=== PATIENT | female | born 1970 | race Caucasian/White ===

== ENCOUNTER 2021-04-11 14:18 | Emergency (ER) | payer OTHER, SELFPAY ==
--- NOTE | ~2021-04-11 | XR_ITS ---
EXAMINATION: XR lumbar spine 2-3V EXAM DATE: 04/11/2021 15:21 INDICATION: low back pain traveling down RT leg . TECHNIQUE: Lumber spine frontal, lateral, lateral L5-S1 projections for interpretation. There is no prior study for comparison. FINDINGS: Mild to moderate disc disease at L5-S1, mild at the other lumbar levels. No acute fracture identified. There is mild to moderate lumbar facet arthropathy. The vertebral bodies are aligned in the AP dimension. There are no osteoblastic or osteolytic lesions identified. Sacrum, sacroiliac join ts, sacral arcuate lines are intact. There are cholecystectomy clips. No spondylolysis. IMPRESSION: 1. Mild to moderate lumbar spondylosis. Reviewed, dictated and finalized at location B.
--- NOTE | ~2021-04-11 | XR_ITS ---
EXAMINATION: XR hip RT 2V w AP pelvis INDICATION: Right hip pain TECHNIQUE: AP view the pelvis and three views of the right hip are obtained. COMPARISON: 01/19/2018 FINDINGS: Bone alignment is normal. There is no fracture. There is mild to moderate osteoarthritis of the hips. Phleboliths are noted in the pelvis. The soft tissues are otherwise unremarkable. A chroni c thin linear radiopaque density projects in the soft tissues lateral to the proximal femur. IMPRESSION: 1. Mild to moderate osteoarthritis without acute findings or significant interval change. Reviewed, dictated and finalized at location A. IMPRESSION: 1. Mild to moderate osteoarthritis without acute findings or significant interv al change.
--- NOTE | ~2021-04-11 | CT_ITS ---
EXAMINATION: CT abdomen pelvis w con DATE: 04/11/2021 16:00 INDICATION: Abdominal pain, back and right hip pain. TECHNIQUE: Computed tomography (CT) of the abdomen and pelvis was performed with 100 cc Omnipaque 350 intravenous contrast. Automated exposure control and iterative reconstruction technique were employe d. Exam dose: 1464.34 mGy-cm total exam DLP. COMPARISON: 08/29/2014 CT abdomen pelvis FINDINGS: The lung bases are clear of infiltrate or consolidation. Likely benign 4 mm right lower lob e nodule and likely benign pleural-based 3.5 left lower lobe nodule. Heart size is within normal range. No pericardial or pleural effusion. Status post cholecystectomy. The liver, spleen, pancreas, bile ducts pancreatic duct and adrenal glan ds are unremarkable. Probable 4.5 mm lower pole left renal cyst and probable 5 mm left upper pole 4.5 mm lower pole left r enal cyst. No urinary tract calculus or hydroureteronephrosis. The urinary bladder is unremarkable. Status post hysterectomy. Normal caliber of the abdominal aorta. No intraperitoneal or retroperitoneal or pelvic mass lesion or adenopathy or ascites. Diverticulosis of the colon; no CT evidence of diverticulitis. No bowel obstruction, bowel wall thick ening, pneumatosis or intraperitoneal free air. Small fat-containing umbilical hernia. No suspicious osteolytic or osteoblastic lesions. Diffuse idiopathic skeletal hyperostosis of the low er thoracic spine. Prominent bilateral hip osteoarthritis. IMPRESSION: Status post cholecystectomy Probable small renal cysts Status post hysterectomy Diverticulosis of the colon Diffuse idiopathic skeletal hyperostosis of the thoracic spine Prominent bilateral hip osteoarthritis Reviewed, dictated and finalized at Location A. Reviewed, dictated and finalized at location A.
--- NOTE | 2021-04-11 14:49 | ED.GENADULT ---
HPI - General Adult General Chief complaint: Abdominal Pain Stated complaint: Numbness/pain R leg Source: patient Mode of arrival: ambulatory Limitations: no limitations History of Present Illness HPI narrative: Emily is a 50F with a PMH of GERD, Anxiety, Asthma, and neuropathy that presented to the ED with thigh, back and abdominal pain. First the lateral part of her right thigh started 6 days ago after she played with her grandson. I gradually got worse and moved up to her RLQ and low back. It hurts constantly but is worse with activity. It is accompanied with nausea but no vomiting. She denies fevers, chills, vomiting diarrhea, constipation, chest pain, SOB, and trauma to the area. Related Data Home Medications Medication Instructions Recorded Confirmed calcium citrate-vitamin D3 1 tab-cap PO DAILY 04/11/21 04/11/21 duloxetine 30 mg PO DAILY 04/11/21 04/11/21 gabapentin 600 mg PO DAILY 04/11/21 04/11/21 levothyroxine 112 mcg PO DAILY 04/11/21 04/11/21 jz-us-njkz-FA-Ca carb-vit K 1 tablet PO DAILY 04/11/21 04/11/21 [Women's Multivitamin] omeprazole 20 mg PO DAILY 04/11/21 04/11/21 paroxetine HCl 20 mg PO QAM 04/11/21 04/11/21 Allergies Allergy/AdvReac Type Severity Reaction Status Date / Time alprazolam AdvReac Severe DELIRIUM Verified 01/05/20 09:22 naproxen AdvReac Intermediate SEVERE Verified 01/05/20 09:22 HEADACHE Review of Systems Constitutional: Constitutional: Reports no additional constitutional complaints, Denies chills and Denies fever(s) Eyes: Eyes: Reports no additional eye complaints ENT: Reports system reviewed and no additional complaints, except as documented Cardiovascular: Cardiovascular: Reports no additional cardiovascular complaints Respiratory: Respiratory: Reports no additional respiratory complaints Gastrointestinal: Gastrointestinal: Reports as per HPI Genitourinary: Genitourinary: Reports as per HPI, Denies hematuria and Denies dysuria Musculoskeletal: Musculoskeletal: Reports no additional musculoskeletal complaints Integumentary/Breasts: Skin/Breast: Reports system reviewed and no additional complaints, except as docu Neurologic: Reports system reviewed and no additional complaints, except as documented Psychiatric: Psychiatric: Reports no additional psychiatric complaints Endocrine: Endocrine: Reports no additional endocrine complaints Hematologic/Lymphatic: Hematologic/Lymphatic: Reports no additional hematologic/lymphatic complaints Allergic/Immunologic: Allergic/Immunologic: Reports no additional allergic/immunologic complaints [facility] Social History Social History Alcohol intake: never Exam Const: General: no acute distress and alert Orientation/consciousness: patient oriented x3 Limitations: No altered mental status HENMT: Head: normal to inspection Other: atrauamtic Eyes: Conjunctivae: conjunctivae normal Pupils: Equal, round and reactive pupils present Neck: Neck: normal visual inspection Chest: Chest palpation & inspection: normal inspection of the chest Resp: Effort & Inspection: normal respiratory effort Auscultation: clear to auscultation bilaterally Cardio: Rate: regular rate Rhythm: regular rhythm GI: Inspection: non-distended GI Palp: Yes Soft to palpation, Yes Tenderness to palpation present (GI), No Guarding due to palpation present (GI) and No Rigid due to palpation Other: TTP in the right lower quadrant. +Rosving, obturator and psoas signs. : General: Yes no CVA tenderness Back/Spine/Pelvis: Back: no CVA tenderness Skin: General skin exam: normal color Rashes: no rashes Neuro: General: patient oriented x3 and moves all extremities Extrem: General: normal to inspection Psych: Appearance: grossly normal Mental Status: mental status grossly normal Thought content: Yes Normal thought content present Course Course Emergency Course: Emily was evaluated. She wa
[2021-04-11 14:55] VITALS: BP 107/82; PULSE 93; RESP 16; TEMP 36.6; O2SAT 97
[2021-04-11] MEDS: MORPHINE SULFATE (*CRX) 4 MG/ML INJ IV PUSH (15:02)
[2021-04-11 15:15] LABS: Basophils Absolute Auto 0.03 K/mm3 (0.00-0.10); Basophils Percent Auto 0.4 % (0.0-1.0); Eosinophils Absolute Auto 0.07 K/mm3 (0.02-0.50); Eosinophils Percent Auto 0.8 % (1.0-6.0); Hemoglobin 13.6 g/dL (12.0-15.0); Immature Granulocyte Absolute 0.03 K/mm3 (0.00-0.00); Immature Granulocyte Percent A 0.4 % (0.0-0.0); Lymphocytes Absolute Auto 2.04 K/mm3 (1.10-4.50); Lymphocytes Percent Auto 24.5 % (18.0-42.0); Mean Corpuscular HGB Conc 33.2 g/dL (32.0-36.0); Mean Corpuscular Volume 90.5 fL (78.0-102.0); Mean Platelet Volume 9.7 fl (9.2-11.8); Monocytes Absolute Auto 0.45 K/mm3 (0.10-0.90); Monocytes Percent Auto 5.4 % (2.0-11.0); Neutrophils Absolute Auto 5.7 K/mm3 (1.7-7.2); Neutrophils Percent Auto 68.5 % (50.0-70.0); Platelet Count Result 236 K/mm3 (150-420); Red Blood Count 4.53 M/mm3 (4.20-5.40); Red Cell Distribution Width 12.4 % (11.6-14.4); White Blood Count 8.3 K/mm3 (4.8-10.8)
[2021-04-11 15:27] LABS: INR 0.9; Prothrombin Time 9.9 Seconds (9.50-12.10)
[2021-04-11 15:32] LABS: Alanine Aminotransferase 35 U/L (14-59); Albumin Level 3.6 g/dL (3.4-5.0); Alkaline Phosphatase 71 U/L (46-116); Anion Gap 13 mmol/L (8-16); Aspartate Amino Transferase 24 U/L (15-37); Bilirubin,Total 0.2 mg/dL (0.00-1.00); Blood Urea Nitrogen 15 mg/dL (7-18); Calcium 8.7 mg/dL (8.5-10.1); Carbon Dioxide 24 mmol/L (21-32); Chloride 104 mmol/L (98-108); Estimated CRCL calculation 105 ml/min; Estimated Glomerular Filt Rate > 60; Glucose 127 mg/dL (70-99); Lipase 84 U/L (73-393); Osmolality Calculated 294 mOsm/kg (285-295); Sodium 141 mmol/L (136-145); Total Protein 6.8 g/dL (6.4-8.2)
[2021-04-11 15:34] LABS: CRP < 0.5 mg/dL (0.0-0.9); Lactic Acid Reflex 1.5 mmol/L (0.4-2.0)
[2021-04-11 16:09] LABS: Add Urine Microscopic? NO; Appearance Urine Clear (Clear); Bilirubin Urine Negative (Negative); Blood Urine Negative (Negative); Color Urine Yellow (Yellow); Glucose Urine UA Negative (Negative); Ketones Urine Negative (Negative); Leukocyte Esterase Ur Negative (Negative); Nitrate Urine Negative (Negative); Protein Urine Negative (Negative); Urobilinogen Urine 0.2 mg/dL (0.2-1.0); pH Urine 6.5 (5.0-8.0)
[2021-04-11 16:12] LABS: Pregnancy On Board Control Positive; Urine Pregnancy Test Negative
--- NOTE | 2021-04-11 16:15 | PC.NURSE ---
Pt states he is uncomfortable on stretcher, pt helped to sit in chair.
[2021-04-11 16:35] VITALS: BP 138/87; PULSE 74; RESP 18; O2SAT 98
== END 2021-04-11 16:38 | disposition home or self-care (01) ==
PROVIDERS: Emergency Provider Family Medicine
DX: R10.9 Unspecified abdominal pain (principal); M13.851 Other specified arthritis, right hip
CPT/HCPCS: 36415; 72100; 73502; 74177; 80053; 81003; 81025; 83605; 83690; 85025; 85610; 86140; 96374; 99283; 99284; J2270; Q9967

== ENCOUNTER 2021-11-18 17:22 | Emergency (ER) | payer OTHER, SELFPAY ==
[2021-11-18 17:30] VITALS: BP 126/73; PULSE 81; RESP 18; TEMP 36.6; O2SAT 99
--- NOTE | 2021-11-18 18:30 | ED.SKABFB ---
HPI - Skin/Abscess/Foreign Bdy General Chief complaint: Skin/Abscess/Foreign Body Stated complaint: knot beneath underarm with swelling Time Seen by Provider: 11/18/21 18:04 Source: patient Mode of arrival: ambulatory Limitations: no limitations History of Present Illness HPI narrative: This is a 51-year-old female that presents to the emergency department for an abscess to the right axilla. Noted over the last week. She has been using warm compresses with little relief. Denies fever or drainage from the area. Related Data Home Medications Medication Instructions Recorded Confirmed calcium citrate-vitamin D3 1 tab-cap PO DAILY 04/11/21 04/11/21 duloxetine 30 mg PO DAILY 04/11/21 04/11/21 gabapentin 600 mg PO DAILY 04/11/21 04/11/21 levothyroxine 112 mcg PO DAILY 04/11/21 04/11/21 xt-cs-vesw-FA-Ca carb-vit K 1 tablet PO DAILY 04/11/21 04/11/21 [Women's Multivitamin] omeprazole 20 mg PO DAILY 04/11/21 04/11/21 paroxetine HCl 20 mg PO QAM 04/11/21 04/11/21 Allergies Allergy/AdvReac Type Severity Reaction Status Date / Time alprazolam AdvReac Severe DELIRIUM Verified 01/05/20 09:22 naproxen AdvReac Intermediate SEVERE Verified 01/05/20 09:22 HEADACHE Review of Systems Review of Systems: CONSTITUTIONAL: Denies fever SKIN: Reports abscess All systems reviewed & are unremarkable except as noted in HPI and below PMFSH Past Medical History Medical History (Updated 11/18/21 @ 19:01 by Inna Desai PA-C) History of gastroesophageal reflux (GERD) History of hypothyroidism History of peripheral neuropathy Social History Social History Alcohol intake: never Exam Narrative: GENERAL: Well-appearing, well-nourished, and in no acute distress. HEAD: Normocephalic, atraumatic. EYES: EOMI. EXTREMITIES: Normal range of motion. No edema. Right axilla with 2cm area of erythema with central fluctuance, mild surrounding cellulitis. No lymphangitic streaking. Normal radial pulses SKIN: Warm, dry, no rash. NEURO: No focal deficits. Alert and oriented x3. PSYCH: Normal mood and affect Course Vital Signs Vital signs: Vital Signs Temperature 97.9 F 11/18/21 17:30 Pulse Rate 81 11/18/21 17:30 Respiratory Rate 18 11/18/21 17:30 Blood Pressure 126/73 11/18/21 17:30 Pulse Oximetry 99 11/18/21 17:30 Temperature 97.9 F 11/18/21 17:30 Pulse Rate 81 11/18/21 17:30 Respiratory Rate 18 11/18/21 17:30 Blood Pressure 126/73 11/18/21 17:30 Pulse Oximetry 99 11/18/21 17:30 Procedures Abscess I/D upper extremity: Date of Incision: 11/18/21 Time of Incision: 18:59 Side (if applicable): right Local Anesthetic: lidocaine 1% and with epi Amount of anesthesia used (mL): 3 Technique: incised with #11 blade Packing used?: none I&D Results: Pus and Blood MDM - Skin/Abscess/Foreign Bdy MDM Narrative Medical decision making narrative: Patient presents to the emergency department for an abscess to the right axilla. She is afebrile and nontoxic-appearing. This was successfully drained. Patient will be started on oral antibiotics. She was instructed on care of her wound. She is to follow-up with her primary care doctor. She was given warnings to return to the ER Critical Care Time Critical Care Time Critical Care Time: No Discharge Plan Discharge Clinical Impression: Abscess of skin or subcutaneous tissue Qualifiers: Site of cutaneous abscess: extremity Site of cutaneous abscess of extremity: axilla Laterality: right Qualified Code(s): L02.411 - Cutaneous abscess of right axilla Patient Disposition: Home, Self-Care Condition: Stable Instructions: Antibiotic Form, Abscess (ED) Additional Instructions: Return if symptoms worsen or concerns: any increase in redness, swelling, pain or fever over 101 Take antibiotics as directed. Clean wound with mild soapy water. Apply
== END 2021-11-18 19:36 | disposition home or self-care (01) ==
PROVIDERS: Emergency Provider Emergency Medicine; PCP Physical Medicine & Rehabilitation
DX: L02.411 Cutaneous abscess of right axilla (principal); E03.9 Hypothyroidism, unspecified; G62.9 Polyneuropathy, unspecified; Z79.899 Other long term (current) drug therapy
CPT/HCPCS: 10060; 99283

== ENCOUNTER 2021-12-17 18:01 | Emergency (ER) | payer OTHER, SELFPAY ==
[2021-12-17 18:15] VITALS: BP 132/87; PULSE 83; RESP 16; TEMP 36.3; O2SAT 100
--- NOTE | 2021-12-17 19:23 | PC.NURSE ---
[facility] ERP DR FONSECA, PLEASE PUT XRAY ORDERS IN ON LEFT KNEE, ELBOW, SHOULDER FOR FALL.
--- NOTE | 2021-12-17 19:24 | PC.NURSE ---
Pt walked out at 192
== END 2021-12-17 19:34 | disposition left against medical advice (07) ==
LOC: ANHED 19:31
PROVIDERS: PCP Physical Medicine & Rehabilitation
DX: M25.422 Effusion, left elbow (principal)
CPT/HCPCS: 99199

== ENCOUNTER 2021-12-20 17:05 | Emergency (ER) | payer OTHER, SELFPAY ==
--- NOTE | ~2021-12-20 | XR_ITS ---
XR knee LT 3V 12/20/2021 17:39 Indication: Left knee pain after recent fall Procedure: 3 views left knee Comparison: 06/07/2012 Findings: No acute fracture, subluxation or dislocation. No joint effusion. There is mild osteoarthri tis of the left knee. No foreign bodies. Impression: 1: No acute fracture. Reviewed, dictated and finalized at location A. Impression: 1: No acute fracture.
--- NOTE | ~2021-12-20 | XR_ITS ---
XR elbow LT min 3V 12/20/2021 17:39 INDICATION: Left elbow pain PROCEDURE: 4 views left elbow COMPARISON: No prior studies for comparison. FINDINGS: Fracture, dislocation or subluxation is not identified. The soft tissues appear within norm al limits. No foreign bodies are identified. IMPRESSION: 1: NO ACUTE BONE OR JOINT ABNORMALITY IDENTIFIED. Reviewed, dictated and finalized at location A.
--- NOTE | 2021-12-20 17:12 | ED.FALL ---
HPI - Fall General Chief Complaint: Extremity Injury, Lower Stated Complaint: L knee/L elbow, fell down Time Seen by Provider: 12/20/21 17:19 Source: patient and RN notes reviewed Mode of arrival: ambulatory Limitations: no limitations History of Present Illness complaint: fall Onset (ago): day(s) (5) Fall from: standing Fall witnessed: no Place fall occurred: street Loss of consciousness: none Prolonged down time: no Symptoms prior to fall: none Context: tripped/slipped ( got caught up in the leash of the dog was chasing a cat) Location of injury - extremities: Left: elbow and knee Severity: moderate Quality: dull and aching Related Data Home Medications Medication Instructions Recorded Confirmed calcium citrate-vitamin D3 1 tab-cap PO DAILY 04/11/21 12/20/21 duloxetine 30 mg capsule,delayed 30 mg PO DAILY 04/11/21 12/20/21 release gabapentin 600 mg tablet 600 mg PO DAILY 04/11/21 12/20/21 levothyroxine 112 mcg tablet 112 mcg PO DAILY 04/11/21 12/20/21 ilxorcmc-sui-chep-FA-Ca carb-vit K 1 tablet PO DAILY 04/11/21 12/20/21 18 mg iron-400 mcg-500 mg tablet Allergies Allergy/AdvReac Type Severity Reaction Status Date / Time alprazolam AdvReac Severe DELIRIUM Verified 12/20/21 17:25 naproxen AdvReac Intermediate SEVERE Verified 12/20/21 17:25 HEADACHE Review of Systems Review of Systems: All systems reviewed & are unremarkable except as noted in HPI and below PMFSH Past Medical History Medical History (Updated 12/20/21 @ 18:04 by Edgar Pino MD) History of gastroesophageal reflux (GERD) History of hypothyroidism History of peripheral neuropathy Morbid obesity Social History Social History Alcohol intake: never Exam Const: General: healthy appearing, no acute distress and alert Nutritional Appearance: well nourished and obese morbidly obese Orientation/consciousness: patient oriented x3 Limitations: no limitations HENMT: Head: normal to inspection Ears: external ears normal General nose exam: Normal external nose present Face and sinus: normal facial exam Mouth: Yes moist mucous membranes Eyes: Conjunctivae: conjunctivae normal Pupils: Equal, round and reactive pupils present EOM: EOMs intact bilaterally Neck: Neck: normal visual inspection Resp: Effort & Inspection: normal respiratory effort Auscultation: clear to auscultation bilaterally Cardio: Rate: regular rate Rhythm: regular rhythm GI: GI Palp: Yes Soft to palpation and No Tenderness to palpation present (GI) Auscultation: normal bowel sounds Back/Spine/Pelvis: Cervical Spine: cervical ROM normal Thoracic/Lumbar Spine: thoraco-lumbar ROM normal Skin: General skin exam: normal color Rashes: no rashes Wounds: wounds noted ( abrasion on left elbow and left anterior knee) Neuro: General: patient oriented x3, moves all extremities, no focal motor deficits and CN's II-XI intact bilaterally Speech: normal speech Gait exam (Neuro): Normal gait present ( mild limping gait) Extrem: General: normal exam except as noted Left upper extremity: elbow/forearm tenderness of the olecranon, swelling of the olecranon (mild), normal ROM and abrasion elbow posterior single; no unusual warmth, no crepitus and no deformity Left lower extremity: knee Details: tenderness Location: of the patella Details: inferiorly and of the tibial tuberosity, swelling Location: of the patella, normal ROM, knee ligament exam normal and abrasion knee anterior Details: single Psych: Mental Status: mental status grossly normal Affect: normal affect Attitude: cooperative Course Vital Signs Vital signs: Vital Signs Temperature 37.1 C 12/20/21 17:18 Pulse Rate 101 H 12/20/21 17:18 Respiratory Rate 16 12/20/21 17:18 Blood Pressure 141/87 H 12/20/21 17:18 Pulse Oximetry 96 12/20/21 17:18 Oxygen Delivery Room Air 12/20/21 17:18 Temperature 37.1 C 12/20/21 17:57 Pulse Rate 9
[2021-12-20 17:18] VITALS: BP 141/87; PULSE 101; RESP 16; TEMP 37.1; O2SAT 96
[2021-12-20 17:57] VITALS: BP 126/65; PULSE 92; RESP 16; TEMP 37.1; O2SAT 95
== END 2021-12-20 18:10 | disposition home or self-care (01) ==
PROVIDERS: Emergency Provider Emergency Medicine; PCP Physical Medicine & Rehabilitation
DX: S50.02XA Contusion of left elbow, initial encounter (principal); S80.02XA Contusion of left knee, initial encounter; W19.XXXA Unspecified fall, initial encounter
CPT/HCPCS: 73080; 73562; 99284

== ENCOUNTER 2022-09-22 08:07 | Outpatient (CLI) | payer OTHER, SELFPAY ==
[2022-09-22 08:57] LABS: Alanine Aminotransferase 34 U/L (6-35); Albumin Level 4.4 g/dL (3.5-5.1); Alkaline Phosphatase 81 U/L (38-126); Anion Gap 4 mmol/L (8-16); Aspartate Amino Transferase 25 U/L (14-36); Bilirubin,Total 0.5 mg/dL (0.2-1.3); Blood Urea Nitrogen 10 mg/dL (7-17); Calcium 9.6 mg/dL (8.4-10.2); Carbon Dioxide 28 mmol/L (22-30); Chloride 106 mmol/L (98-107); Cholesterol 206 mg/dL (0-200); Estimated Glomerular Filt Rate > 60; Glucose 128 mg/dL (65-110); HDL Direct 46 mg/dL; Potassium 4.4 mmol/L (3.4-5.0); Sodium 138 mmol/L (137-145); Triglycerides 185 mg/dL (<150)
[2022-09-22 09:08] LABS: LDL Cholesterol Direct 114 mg/dL
== END 2022-09-22 08:08 | disposition home or self-care (01) ==
PROVIDERS: PCP Family Medicine; Visit Provider Family Medicine
DX: E78.5 Hyperlipidemia, unspecified (principal); E03.9 Hypothyroidism, unspecified
CPT/HCPCS: 36415; 80053; 80061; 84443

== ENCOUNTER 2022-12-25 16:40 | Emergency (ER) | payer OTHER, SELFPAY ==
--- NOTE | ~2022-12-25 | US_ITS ---
EXAMINATION: US pelvic complete DATE: 12/25/2022 20:55 INDICATION: Abdominal pain. Right ovarian cyst and assess for torsion. TECHNIQUE: Multiple transabdominal sonographic images of the pelvis were obtained. COMPARISON: None. FINDINGS: The uterus is not visualized and reportedly surgically absent. The right ovary measures 7.1 x 5.5 x 6 .0 cm and contains a 6.4 cm simple appearing anechoic cyst. Vascular flow is seen in the right ovary periphery of the cyst on color Doppler. The left ovary is not visualized. There is no free fluid in t he pelvis. IMPRESSION: 1. Vascular flow evident at the right ovary which contains a 6.4 cm simple appearing cyst. Reviewed, dictated and finalized at location A. IMPRESSION: 1. Vascular flow evident at the right ovary which contains a 6.4 cm simple appe aring cyst.
--- NOTE | ~2022-12-25 | CT_ITS ---
EXAMINATION: CT abdomen pelvis w con DATE: 12/25/2022 19:39 INDICATION: Generalized abdominal pain TECHNIQUE: Computed tomography (CT) of the abdomen and pelvis was performed with 100 mL Omnipaque-350 intravenous contrast. Automated exposure control and iterative reconstruction technique were employe d. The dose-length product was 1555.08 mGy-cm. 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 A couple additional 5-6 mm noncalcified nodules in the right lower lobe and lingula. Mild dependent atelectasis in the bilateral lower lobes. Heart size is normal. No pericardial or pleural effusion. Cholecystectomy clips the gallbladder fossa. Liver, spleen, pancreas, bilateral adrenal gla nds and right kidney are normal. There are a few left renal cysts the largest measuring 8 mm. There a re few scattered colonic diverticula without adjacent inflammatory change to suggest diverticulitis. Small bowel is normal. The appendix is not visualized. No pericecal inflammatory change to suggest ac hughes appendicitis. 7.1 x 5.3 cm right adnexal cyst left adnexa is unremarkable. The uterus is not iden tified and has likely been surgically resected. Bladder is normal. Mild lumbar and lower thoracic spo ndylosis. Small fat-containing umbilical hernia. Moderate bilateral hip osteoarthritis. IMPRESSION: 1. 7.1 x 5.3 cm right adnexal cyst. No other acute intra-abdominal/pelvic process. 2. A couple 5-6 mm noncalcified pulmonary nodules. If the patient is low risk for lung cancer, no fol low-up is needed. If the patient is high risk (i.e., history of smoking or asbestos or significant ra diation exposure), optional follow-up chest CT could be considered at 12 months. 3. Small fat-containing umbilical hernia. Reviewed, dictated and finalized at location A. IMPRESSION: 1. 7.1 x 5.3 cm right adnexal cyst. No other acute intra-abdominal/pelvic proce ss. 2. A couple 5-6 mm noncalcified pulmonary nodules. If the patient is low risk f or lung cancer, no follow-up is needed. If the patient is high risk (i.e., hist ory of smoking or asbestos or significant radiation exposure), optional follow- up chest CT could be considered at 12 months. 3. Small fat-containing umbilical hernia.
[2022-12-25 16:48] VITALS: BP 146/73; PULSE 90; RESP 16; TEMP 36.8; O2SAT 97
[2022-12-25 17:50] LABS: Appearance Urine Clear (Clear); Bilirubin Urine Negative (Negative); Blood Urine Negative (Negative); Color Urine Yellow (Yellow); Glucose Urine UA Negative (Negative); Ketones Urine Negative (Negative); Leukocyte Esterase Ur Negative LEU/UL (Negative); Nitrate Urine Negative (Negative); Protein Urine Negative (Negative); Urobilinogen Urine 0.2 mg/dL (<2.0)
[2022-12-25 18:03] LABS: Add Urine Microscopic? NO
[2022-12-25] MEDS: MORPHINE SULFATE (*CRX) 4 MG/ML INJ IV PUSH (18:36)
[2022-12-25] MEDS: SODIUM CHLORIDE 0.9% IV 1,000 ML 999 ML IV CONT (18:36)
[2022-12-25] MEDS: ONDANSETRON INJ 4 MG/2 ML VIAL IV PUSH (18:36)
[2022-12-25 19:08] LABS: Basophils Absolute Auto 0.1 K/mm3 (0.0-0.1); Basophils Percent Auto 0.7 % (0.2-1.2); Eosinophils Absolute Auto 0.3 K/mm3 (0-0.3); Eosinophils Percent Auto 3.6 % (0-4.4); Hematocrit 41.3 % (37.0-47.0); Hemoglobin 13.8 g/dL (12.0-15.0); Immature Granulocyte Absolute 0.03 K/mm3 (0.00-0.031); Immature Granulocyte Percent A 0.3 % (0-0.5); Lymphocytes Absolute Auto 3.04 K/mm3 (0.9-3.2); Lymphocytes Percent Auto 33.3 % (18.3-44.2); Mean Corpuscular HGB Conc 33.4 g/dl (32-36); Mean Corpuscular Hemoglobin 29.5 pg (26-34); Mean Corpuscular Volume 88.2 fl (80-100); Mean Platelet Volume 9.9 fl (7.4-10.4); Monocytes Absolute Auto 0.5 K/mm3 (0.1-0.6); Monocytes Percent Auto 5.3 % (2.6-8.5); Neutrophils Absolute Auto 5.2 K/mm3 (1.3-6.7); Neutrophils Percent Auto 56.8 % (45.5-73.1); Platelet Count Result 340 k/mm3 (150-375); Red Blood Count 4.68 M/mm3 (4.2-5.4); Red Cell Distribution Width 12.9 % (11.5-14.5); White Blood Count 9.1 K/mm3 (4.5-10.0)
[2022-12-25 19:19] LABS: Alanine Aminotransferase 29 U/L (6-35); Albumin Level 4.2 g/dL (3.5-5.1); Alkaline Phosphatase 71 U/L (38-126); Anion Gap 6 mmol/L (8-16); Aspartate Amino Transferase 25 U/L (14-36); Bilirubin,Total 0.3 mg/dL (0.2-1.3); Blood Urea Nitrogen 15 mg/dL (7-17); Calcium 8.9 mg/dL (8.4-10.2); Carbon Dioxide 27 mmol/L (22-30); Chloride 104 mmol/L (98-107); Estimated CRCL calculation 142 ml/min; Estimated Glomerular Filt Rate > 60; Glucose 95 mg/dL (65-110); Lipase 57 U/L (23-300); Potassium 3.9 mmol/L (3.4-5.0); Sodium 137 mmol/L (137-145)
--- NOTE | 2022-12-25 20:14 | ED.FEMALEGU ---
HPI - Female Genitourinary General Chief complaint: Urogenital-Female Stated complaint: flank pain, increased urinary frequency Time Seen by Provider: 12/25/22 16:59 History of Present Illness HPI Narrative: 52-year-old female reports for evaluation of generalized abdominal pain and low back pain x1. Patient reports the pain as sharp and predominantly in her lower abdomen. She is not able to associate p.o. intake with worsening pain. She does report associated nausea, no vomiting or diarrhea. Last bowel movement yesterday was normal. She reports a history of multiple ovarian cysts, and she has had a partial hysterectomy and cholecystectomy. She follows with Dr. Sanchez for OBGYN. Related Data Home Medications Medication Instructions Recorded Confirmed calcium citrate-vitamin D3 1 tab-cap PO DAILY 04/11/21 08/11/22 duloxetine 30 mg capsule,delayed 30 mg PO DAILY 04/11/21 08/11/22 release gabapentin 600 mg tablet 600 mg PO DAILY 04/11/21 08/11/22 levothyroxine 112 mcg tablet 112 mcg PO DAILY 04/11/21 08/11/22 yfyqeoks-lhg-hzfd-FA-Ca carb-vit K 1 tablet PO DAILY 04/11/21 08/11/22 18 mg iron-400 mcg-500 mg tablet Allergies Allergy/AdvReac Type Severity Reaction Status Date / Time alprazolam AdvReac Severe DELIRIUM Verified 12/25/22 17:30 naproxen AdvReac Intermediate SEVERE Verified 12/25/22 17:30 HEADACHE Review of Systems Review of Systems: CONSTITUTIONAL: Denies fever, chills EYES: Denies visual changes, redness, or discharge. ENT: Denies rhinorrhea, congestion, sore throat, or otalgia. CARDIOVASCULAR: Denies chest pain, palpitations, or edema. RESPIRATORY: Denies cough or dyspnea. GASTROINTESTINAL: See HPI GENITOURINARY: Denies dysuria or hematuria. SKIN: Denies rash or itching. MUSCULOSKELETAL: Denies back pain, joint pain, or myalgia. NEUROLOGIC: Denies headache, numbness, dizziness, or weakness. PSYCHIATRIC: Denies anxiety or depression. [facility] Past Medical History Medical History Anxiety and depression Arthritis Asthma History of gastroesophageal reflux (GERD) History of hypothyroidism History of peripheral neuropathy Migraines Morbid obesity Psoriasis Screening mammogram, encounter for Surgical History Surgical History History of cholecystectomy (~2008) History of dilation and curettage (~2005) x2 History of endometrial ablation (~1997) History of foot surgery History of laparoscopy (08/20/11) w/ adhesiolysis History of surgery on left wrist (08/19/17) cyst removal History of tonsillectomy (03/06/19) History of total abdominal hysterectomy (03/25/07) prolapse--ovaries still present History of tubal ligation (~1997) Family History Family History Father Heart disease Diabetes mellitus Hypertension Hypercholesteremia Mother Diabetes mellitus Hypertension Hypercholesteremia Neuropathy Grandparent Hypertension maternal grandmother maternal grandfather paternal grandmother paternal grandfather Hypercholesteremia maternal grandmother maternal grandfather paternal grandmother paternal grandfather Congestive heart failure maternal grandmother Sibling Cerebrovascular accident sister Thyroid cancer Brother Other Malignant tumor of ovary paternal aunt Congestive heart failure maternal aunt Daughter Epilepsy Social History Social History Years smoked: 30 Smoking status: Never smoker Tobacco type: cigarettes Alcohol intake: never Substance use: never Living arrangements: alone Occupation/Education: occupation 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
[2022-12-25 22:29] VITALS: BP 155/79; PULSE 81; RESP 16; O2SAT 97
== END 2022-12-25 22:30 | disposition home or self-care (01) ==
PROVIDERS: Emergency Provider Physician Assistant; PCP Family Medicine
DX: N83.291 Other ovarian cyst, right side (principal); J45.909 Unspecified asthma, uncomplicated; E03.9 Hypothyroidism, unspecified; G62.9 Polyneuropathy, unspecified; K21.9 Gastro-esophageal reflux disease without esophagitis; M19.90 Unspecified osteoarthritis, unspecified site; E66.01 Morbid (severe) obesity due to excess calories; Z68.37 Body mass index [BMI] 37.0-37.9, adult; Z90.49 Acquired absence of other specified parts of digestive tract; Z90.710 Acquired absence of both cervix and uterus
CPT/HCPCS: 36415; 74177; 76856; 80053; 81003; 83690; 85025; 96361; 96374; 96375; 99284; J2270; J2405; J7030; Q9967

== ENCOUNTER 2022-12-28 12:30 | Outpatient (RCR) | payer OTHER, SELFPAY ==
--- NOTE | 2022-12-02 11:08 | PTOPEVAL1 ---
Assessment and note entered by Nathanael Vega, PT Evaluation Information Assessment Status Evaluation Diagnosis Trochanteric bursitis R hip Subjective Information Patient reports having ROBERT hip pain for 8-10 years with her going to therapy and getting injections throughout that entire time. Patient reports multiple falls walking her dog, a 2 year old Pit, Doberman mix. Patient reports increased pain with almost all activities but especially walking her dog, sleeping, prolonged sitting,walking in general. Assessment PT Clinical Summary Emily is a 52 year old female coming into the clinic with a diagnosis of R hip greater trochanter bursitis. Patient has a positive scour test on ROBERT hips, decreased piriformis which therapist believes in more joint related than muscle. weakness in ROBERT hips, tightness in IT bands. Physical therapy will work on improving strength and doing manual, stretching, and modalities to help with tightness of the IT bands . Plan of Care Interventions Electrical Stimulation,Gait Training,Hot Pack/Cold Pack,Manual Therapy,Neuro Re-education,Patient/ Caregiver Education,Therapeutic Activities, Therapeutic Exercise,Ultrasound Other Interventions cupping, taping, IASTM PT Services Indicated Yes Treatment Frequency and 1-2x/wk for 4 weeks Duration These treatments will address the objective and functional deficits as defined above. The patient will be advanced safely and appropriately in order for the patient to progress towards his/her prior level of function. Additional exercises will be introduced and as well as a comprehensive home exercise program upon discharge, if needed, ?to ensure carryover of functional gains achieved in the clinic. This treatment plan has been reviewed and agreement upon by the patient.
--- NOTE | 2022-12-28 13:01 | PTOPDC ---
Assessment and note entered by Nathanael Vega, PT Evaluation Information Assessment Status Discharge Diagnosis R hip trochanteric bursitis Subjective Information Patient reports her hip is feeling a little better, but that the abdominal pain she felt in the last two visits when seen in the emergency room is a 6 cm ovarian cyst. 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 Reported Pain Level Pain Score 6: Self Report Assessment PT Clinical Summary Emily is a 52 year old fmeale coming into the clinic with a diagnosis of R trochanteric bursitis . She was evaluated on 12/01/22 and has attended 8 sessions. Patient has met her strength and education goal, but not her pain or functional goals. Discussed with patient and believe it is best to get her cyst checked out and dealt with as it limits participation in physical therapy and unsure if the pain is referred from ovary itself. Patient is agreement. Discharged from skilled physical therapy. Plan of Care PT Services Indicated No
== END 2022-12-28 14:00 | disposition home or self-care (01) ==
LOC: ANHPT 12:30
PROVIDERS: PCP Family Medicine; Visit Provider Physician Assistant Surgical
DX: M70.61 Trochanteric bursitis, right hip (principal)
CPT/HCPCS: 97110; 97140; 97161; 97530

== ENCOUNTER 2023-05-26 17:28 | Emergency (ER) | payer OTHER, SELFPAY ==
[2023-05-26 17:58] VITALS: BP 148/76; PULSE 91; RESP 20; TEMP 36.6; O2SAT 98
[2023-05-26 18:00] VITALS: BP 148/76; PULSE 91; RESP 20; TEMP 36.6; O2SAT 98
--- NOTE | 2023-05-26 18:05 | ED.EXTPRO ---
HPI - Extremity Problem General Chief complaint: Extremity Injury, Upper Stated complaint: Right Hand Thumb Pain Time Seen by Provider: 05/26/23 18:05 Source: patient Mode of arrival: ambulatory Limitations: no limitations History of Present Illness HPI Narrative: Emily is a 52-year-old female patient presenting to the clinic today with complaints of right thumb pain that started yesterday. 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 Having pain to the proximal right thumb. No pain or discomfort to other digits. Denies any weakness in head char filter tank tender other than pain in her thumb. Related Data Home Medications Medication Instructions Recorded Confirmed calcium citrate-vitamin D3 1 tab-cap PO DAILY 04/11/21 05/26/23 gabapentin 600 mg tablet 600 mg PO DAILY 04/11/21 05/26/23 levothyroxine 112 mcg tablet 112 mcg PO DAILY 04/11/21 05/26/23 wouwwgvl-ejd-ldyx-FA-Ca carb-vit K 1 tablet PO DAILY 04/11/21 05/26/23 18 mg iron-400 mcg-500 mg tablet duloxetine 30 mg capsule,delayed 90 mg PO DAILY 12/28/22 05/26/23 release baclofen 10 mg tablet mg 05/26/23 Allergies Allergy/AdvReac Type Severity Reaction Status Date / Time alprazolam AdvReac Severe DELIRIUM Verified 05/26/23 17:59 naproxen AdvReac Intermediate SEVERE Verified 05/26/23 17:59 HEADACHE Review of Systems Review of Systems: Pertinent positives per HPI. Patient denies any fever, chills, rash, headache, visual changes, dizziness, cough, runny nose, sore throat, shortness of breath, chest pain, palpitations, nausea, vomiting, diarrhea, constipation, abdominal pain, or any urinary issues. [facility] Past Medical History Medical History Anxiety and depression Arthritis Asthma History of gastroesophageal reflux (GERD) History of hypothyroidism History of peripheral neuropathy Migraines Morbid obesity Psoriasis Screening mammogram, encounter for Surgical History Surgical History History of cholecystectomy (~2008) History of dilation and curettage (~2005) x2 History of endometrial ablation (~1997) History of foot surgery History of laparoscopy (08/20/11) w/ adhesiolysis History of surgery on left wrist (08/19/17) cyst removal History of tonsillectomy (03/06/19) History of total abdominal hysterectomy (03/25/07) prolapse--ovaries still present History of tubal ligation (~1997) Family History Family History Father Heart disease Diabetes mellitus Hypertension Hypercholesteremia Mother Diabetes mellitus Hypertension Hypercholesteremia Neuropathy Grandparent Hypertension maternal grandmother maternal grandfather paternal grandmother paternal grandfather Hypercholesteremia maternal grandmother maternal grandfather paternal grandmother paternal grandfather Congestive heart failure maternal grandmother Sibling Cerebrovascular accident sister Thyroid cancer Brother Other Malignant tumor of ovary paternal aunt Congestive heart failure maternal aunt Daughter Epilepsy Social History Social History Years smoked: 30 Smoking status: Never smoker Tobacco type: cigarettes Alcohol intake: never Substance use: never Substance use type: does not use Lack of Transportation: No Lack of Food: Never True Current Housing: I Have Housing Concerned About Future Housing: No Difficulty Paying Gas/Electric Bills: No Difficulty Paying for Meds: No Currently Unemployed: No Education: Trade/Vocational Certificate Difficulty w/ Childcare or Family Care: No Living arrangements: alone Occupation/Education: occupation Additional occupation/education comments: front desk agent Gender identity (if verbalized by
== END 2023-05-26 18:12 | disposition home or self-care (01) ==
PROVIDERS: Emergency Provider Nurse Practitioner Family; PCP Family Medicine
DX: M65.4 Radial styloid tenosynovitis [de Quervain] (principal); M19.90 Unspecified osteoarthritis, unspecified site; J45.909 Unspecified asthma, uncomplicated; K21.9 Gastro-esophageal reflux disease without esophagitis; E03.9 Hypothyroidism, unspecified; G62.9 Polyneuropathy, unspecified; E66.01 Morbid (severe) obesity due to excess calories; Z68.38 Body mass index [BMI] 38.0-38.9, adult; L40.9 Psoriasis, unspecified
CPT/HCPCS: 99212; G0463

== ENCOUNTER 2023-07-20 11:59 | Emergency (ER) | payer OTHER, SELFPAY ==
[2023-07-20 12:29] VITALS: BP 162/78; PULSE 94; RESP 16; TEMP 36.5; O2SAT 96
[2023-07-20 14:54] VITALS: BP 136/73; PULSE 88; RESP 17; O2SAT 95
[2023-07-20 16:13] VITALS: BP 148/81; PULSE 86; RESP 17; O2SAT 94
--- NOTE | 2023-07-20 18:11 | ED.EYEPROB ---
HPI - Eye Problem General Chief complaint: Eye Problems Stated complaint: eye pain Time Seen by Provider: 07/20/23 17:01 Source: patient Mode of arrival: ambulatory Limitations: no limitations History of Present Illness HPI Narrative: Patient is a 52-year-old female presents the ED with report of left eye pain. Patient reports she was diagnosed with pinkeye last week and started on trimethoprim polymyxin B eyedrops. She reports having persistent pain in her left eye, itching and watery drainage to radha eyes, and mild intermittent blurry vision in her left eye, described as though there is a film across her eye. She states this improves with blinking several times. She does also report having left ear discomfort, intermittent headache, sore scratchy throat. Patient does not currently have an oracle drm consultant. Denies vision loss. Denies double vision. Denies dizziness /lightheadedness. Related Data Home Medications Medication Instructions Recorded Confirmed calcium citrate-vitamin D3 1 tab-cap PO DAILY 04/11/21 05/26/23 gabapentin 600 mg tablet 600 mg PO DAILY 04/11/21 05/26/23 levothyroxine 112 mcg tablet 112 mcg PO DAILY 04/11/21 05/26/23 wmdwvcwh-hcz-hgnh-FA-Ca carb-vit K 1 tablet PO DAILY 04/11/21 05/26/23 18 mg iron-400 mcg-500 mg tablet duloxetine 30 mg capsule,delayed 90 mg PO DAILY 12/28/22 05/26/23 release baclofen 10 mg tablet mg 05/26/23 Allergies Allergy/AdvReac Type Severity Reaction Status Date / Time alprazolam AdvReac Severe DELIRIUM Verified 07/20/23 14:36 naproxen AdvReac Intermediate SEVERE Verified 07/20/23 14:36 HEADACHE Review of Systems Review of Systems: CONSTITUTIONAL: Denies fever, chills, or sweats. ENT: See HPI. NEUROLOGIC: See HPI. All systems reviewed & are unremarkable except as noted in HPI and below PMFSH Past Medical History Medical History Anxiety and depression Arthritis Asthma History of gastroesophageal reflux (GERD) History of hypothyroidism History of peripheral neuropathy Migraines Morbid obesity Psoriasis Screening mammogram, encounter for Surgical History Surgical History History of cholecystectomy (~2008) History of dilation and curettage (~2005) x2 History of endometrial ablation (~1997) History of foot surgery History of laparoscopy (08/20/11) w/ adhesiolysis History of surgery on left wrist (08/19/17) cyst removal History of tonsillectomy (03/06/19) History of total abdominal hysterectomy (03/25/07) prolapse--ovaries still present History of tubal ligation (~1997) Family History Family History Father Heart disease Diabetes mellitus Hypertension Hypercholesteremia Mother Diabetes mellitus Hypertension Hypercholesteremia Neuropathy Grandparent Hypertension maternal grandmother maternal grandfather paternal grandmother paternal grandfather Hypercholesteremia maternal grandmother maternal grandfather paternal grandmother paternal grandfather Congestive heart failure maternal grandmother Sibling Cerebrovascular accident sister Thyroid cancer Brother Other Malignant tumor of ovary paternal aunt Congestive heart failure maternal aunt Daughter Epilepsy Social History Social History Years smoked: 30 Smoking status: Never smoker Tobacco type: cigarettes Alcohol intake: never Substance use: never Substance use type: does not use Lack of Transportation: No Lack of Food: Never True Current Housing: I Have Housing Concerned About Future Housing: No Difficulty Paying Gas/Electric Bills: No Difficulty Paying for Meds: No Currently Unemployed: No Education: Trad
[2023-07-20 18:44] VITALS: BP 150/81; PULSE 94; RESP 16; O2SAT 96
== END 2023-07-20 18:50 | disposition home or self-care (01) ==
PROVIDERS: Emergency Provider Physician Assistant; PCP Family Medicine
DX: S05.02XA Injury of conjunctiva and corneal abrasion without foreign body, left eye, initial encounter (principal); H10.13 Acute atopic conjunctivitis, bilateral; X58.XXXA Exposure to other specified factors, initial encounter; F41.8 Other specified anxiety disorders; E03.9 Hypothyroidism, unspecified; E66.01 Morbid (severe) obesity due to excess calories; Z68.41 Body mass index [BMI] 40.0-44.9, adult
CPT/HCPCS: 99283

== ENCOUNTER 2023-09-06 14:39 | Emergency (ER) | payer OTHER, SELFPAY ==
[2023-09-06 14:56] VITALS: BP 139/80; PULSE 88; RESP 20; TEMP 36.8; O2SAT 98
--- NOTE | 2023-09-06 15:45 | ED.EXTPRO ---
HPI - Extremity Problem General Chief complaint: Extremity Problem,Nontraumatic Stated complaint: Left Thigh Pain Time Seen by Provider: 09/06/23 15:45 Source: patient and RN notes reviewed Mode of arrival: ambulatory Limitations: no limitations History of Present Illness HPI Narrative: 53-year-old female presents with concern for pain it to the left thigh and hip. Reports pain started in her low back after she did heavy lifting approximately 2 weeks ago. Reports she has tried [id number]-uig-[id number] remedies including bones and believe. Reports Aleve gives her temporary relief. She denies any direct trauma. She denies loss of bowel or bladder function, perianal anesthesia, weakness in any extremity. She denies redness, warmth, swelling. MD Complaint: extremity pain Related Data Home Medications Medication Instructions Recorded Confirmed calcium citrate-vitamin D3 1 tab-cap PO DAILY 04/11/21 08/17/23 gabapentin 600 mg tablet 600 mg PO DAILY 04/11/21 08/17/23 levothyroxine 112 mcg tablet 112 mcg PO DAILY 04/11/21 08/17/23 vgodhqhi-gdn-dnlp-FA-Ca carb-vit K 1 tablet PO DAILY 04/11/21 08/17/23 18 mg iron-400 mcg-500 mg tablet duloxetine 30 mg capsule,delayed 90 mg PO DAILY 12/28/22 08/17/23 release baclofen 10 mg tablet mg 05/26/23 08/17/23 Allergies Allergy/AdvReac Type Severity Reaction Status Date / Time alprazolam AdvReac Severe DELIRIUM Verified 09/06/23 14:55 naproxen AdvReac Intermediate SEVERE Verified 09/06/23 14:55 HEADACHE Review of Systems Review of Systems: CONSTITUTIONAL: Denies malaise, chills, sweats, or fever. SKIN: Denies rash or itching, open skin, laceration, abrasion, redness, warmth, swelling. MUSCULOSKELETAL: Reports left hip, leg pain, low back NEUROLOGIC: Denies numbness, weakness All systems reviewed & are unremarkable except as noted in HPI and below PMFSH Past Medical History Medical History (Updated 09/06/23 @ 15:53 by Norma Reyes NP) Anxiety and depression Arthritis Asthma History of gastroesophageal reflux (GERD) History of hypothyroidism History of peripheral neuropathy Migraines Morbid obesity Ovarian cyst Psoriasis Screening mammogram, encounter for Surgical History Surgical History History of cholecystectomy (~2008) History of dilation and curettage (~2005) x2 History of endometrial ablation (~1997) History of foot surgery History of laparoscopy (08/20/11) w/ adhesiolysis History of surgery on left wrist (08/19/17) cyst removal History of tonsillectomy (03/06/19) History of total abdominal hysterectomy (03/25/07) prolapse--ovaries still present History of tubal ligation (~1997) Family History Family History (Updated 08/17/23 @ 15:23 by Laurita Love, [facility]) Father Heart disease Diabetes mellitus Hypertension Hypercholesteremia Mother Diabetes mellitus Hypertension Hypercholesteremia Neuropathy Grandparent Hypertension maternal grandmother maternal grandfather paternal grandmother paternal grandfather Hypercholesteremia maternal grandmother maternal grandfather paternal grandmother paternal grandfather Congestive heart failure maternal grandmother Sibling Cerebrovascular accident sister / brother Thyroid cancer Brother Acute myocardial infarction sister Other Malignant tumor of ovary paternal aunt Congestive heart failure maternal aunt Daughter Epilepsy Social History Social History (Updated 08/17/23 @ 15:24 by Laurita Love [facility]) Years smoked: 30 Smoking status: Never smoker Tobacco type: cigarettes Second hand tobacco smoke exposure: No Smoking end date: 03/03/23 Alcohol intake: never Substance use: never Substance use type: marijuana Other substance usage details: edible ocassionally for pain Do You Feel Safe in your Home?: Yes Lack of Transpo
== END 2023-09-06 16:11 | disposition home or self-care (01) ==
PROVIDERS: Emergency Provider Nurse Practitioner; PCP Family Medicine
DX: M54.32 Sciatica, left side (principal); M19.90 Unspecified osteoarthritis, unspecified site; K21.9 Gastro-esophageal reflux disease without esophagitis; E03.9 Hypothyroidism, unspecified; G62.9 Polyneuropathy, unspecified; E66.01 Morbid (severe) obesity due to excess calories; Z68.36 Body mass index [BMI] 36.0-36.9, adult; L40.9 Psoriasis, unspecified
CPT/HCPCS: 99213; G0463